=== PATIENT | male | born 1985 | race Caucasian/White ===

== ENCOUNTER 2017-04-18 19:48 | Emergency (ER) | payer SELFPAY ==
[~2017-04-18] VITALS: Ht 182.9 cm; Wt 99.8 kg
[2017-04-18 22:47] VITALS: BP 132/79
== END 2017-04-18 22:30 | disposition home or self-care (01) ==
LOC: ED 19:48
DX: H10.213 Acute toxic conjunctivitis, bilateral (principal); S83.92XA Sprain of unspecified site of left knee, initial encounter; X58.XXXA Exposure to other specified factors, initial encounter; Y93.89 Activity, other specified; Y99.8 Other external cause status; Y92.89 Other specified places as the place of occurrence of the external cause
CPT/HCPCS: J7030; V2632